=== PATIENT | female | born 1955 | race Caucasian/White ===

== ENCOUNTER 2016-10-17 09:12 | Emergency (ER) | payer BC ==
[2016-10-17] MEDS ORDERED: diphenhydrAMINE 50 MG/ML 1 ML VIAL IVP STA ×2 (09:52→10:35)
[2016-10-17] MEDS ORDERED: METOCLOPRAMIDE 5 MG/ML 2 ML VIAL IVP STA (09:53)
[2016-10-17] MEDS ORDERED: SODIUM CHLORIDE 0.9% 500 ML IV ONE (09:54)
[2016-10-17] MEDS ORDERED: KETOROLAC 30 MG/ML 1 ML VIAL IVP STA (09:54)
--- NOTE | 2016-10-17 09:59 | ED ---
Headache HPI - General Chief Complaint: Headache Stated Complaint: headache Time Seen by Provider: 10/17/16 09:34 Source: patient, RN notes reviewed Mode of arrival: ambulatory Limitations: no limitations - History of Present Illness Initial Comments: 60-year-old female presents emergency Department with chief complaint of headache. Patient states that headache since Thursday. Patient states she's been taken some Advil occasionally states that also but never resolves her headache. Patient states is a diffuse headache and seems to wax and wane and states that sometimes she feels that there is a band squeezing around her head. Patient denies any blurred vision, visual changes, focal weakness, vomiting but states she is nauseated. Patient denies any photophobia. Patient states she normally does not have any headaches. Patient denies any trauma. Patient denies fever, chills, Shortness of breath. Patient denies any other associated symptoms. - Related Data Home Medications Medication Instructions Recorded Confirmed Cholecalciferol [Vitamin D3] 1,000 unit PO DAILY 10/17/16 10/17/16 Gluc/Yobani-MSM#1/C/Ryan/Bebo/Bor 1 tab PO DAILY 10/17/16 10/17/16 [Glucosamine-Chondroitin Tablet] Multivit with Calcium,Iron,Min 1 tab PO DAILY 10/17/16 10/17/16 [Women's Multivitamin] Soy Isofla/Blk Cohosh/Mag Bark 155 mg PO DAILY 10/17/16 10/17/16 [Estroven 155 mg Capsule] Allergies Allergy/AdvReac Type Severity Reaction Status Date / Time No Known Allergies Allergy Verified 10/17/16 11:37 Review of Systems ROS Statement: Those systems with pertinent positive or pertinent negative responses have been documented in the HPI. ROS Other: All systems not noted in ROS Statement are negative. Past Medical History Past Medical History: Asthma, Hypertension History of Any Multi-Drug Resistant Organisms: None Reported Past Surgical History: No Surgical Hx Reported Past Psychological History: No Psychological Hx Reported Smoking Status: Never smoker Past Alcohol Use History: None Reported Past Drug Use History: None Reported General Exam General appearance: alert, in no apparent distress Head exam: Present: atraumatic, normocephalic, normal inspection Eye exam: Present: normal appearance, PERRL, EOMI. Absent: scleral icterus, conjunctival injection, periorbital swelling ENT exam: Present: normal exam, normal oropharynx, mucous membranes moist, TM's normal bilaterally, normal external ear exam Neck exam: Present: normal inspection, full ROM. Absent: tenderness, meningismus, lymphadenopathy Respiratory exam: Present: normal lung sounds bilaterally. Absent: respiratory distress, wheezes, rales, rhonchi, stridor Cardiovascular Exam: Present: regular rate, normal rhythm, normal heart sounds. Absent: systolic murmur, diastolic murmur, rubs, gallop, clicks Neurological exam: Present: alert, oriented X3, CN II-XII intact, reflexes normal. Absent: motor sensory deficit Skin exam: Present: warm, dry, intact, normal color. Absent: rash Course Vital Signs 10/17/16 10/17/16 09:21 11:56 Temperature 97.8 F Pulse Rate 76 76 Respiratory 18 18 Rate Blood Pressure 172/84 145/77 O2 Sat by Pulse 98 99 Oximetry Medical Decision Making - Medical Decision Making 52-year-old male presented for headache. Patient's headache is resolved this time. There is question aneurysm on CT MRI was performed correlate for hypertension, Lyme disease, demyelinating disease, migraine history. Patient be follow-up with neurologist. - Lab Data Result diagrams: 10/17/16 12:55 Lab Results 10/17/16 Range/Units 12:55 Sodium 145 (137-145) mmol/L Potassium 4.2 (3.5-5.1) mmol/L Chloride 112 H (98-107) mmol/L Carbon Dioxide 25 (22-30) mmol/L Anion Gap 8 mmol/L BUN 9 (7-17) mg/dL Creatinine 0.75 (0.52-1.04) mg/dL Est GFR (MDRD) Af Amer >60 (>60 ml/min/1.73 sqM) Est GFR (MDRD) Non-Af >60 (>60 ml/min/1.73 sqM) Glucose 90 (74-99) mg/dL Calcium 8.9 (8.4-10.2) mg/dL Disposition Clinical Impression: Headache Disposition: HOME SELF-CARE Condition: Stable Instructions: Acute Headache (ED) Additional Instructions: Please return to the Emergency Department if symptoms worsen or any other concerns. Referrals: Ronan Singleton MD [Primary Care Provider] - 1-2 days Claudia Webb MD [STAFF PHYSICIAN] - 1-2 days Time of Disposition: 15:37
--- NOTE | 2016-10-17 10:41 | CT ---
EXAMINATION TYPE: CT brain wo con DATE OF EXAM: 10/17/2016 10:08 AM COMPARISON: 10/01/2013 HISTORY: Headache CT DLP: 935.8 mGycm Automated exposure control for dose reduction was used. FINDINGS: There is no acute intracranial hemorrhage, mass effect, or midline shift identified. The ventricles and sulci are within normal limits in size. The globes are intact and the visualized sinuses are beata ar. There is mild prominence of the basilar tip. Stable from previous exam. Short-term follow-up MRA coul d be obtained. IMPRESSION: No acute intracranial hemorrhage, mass effect, or midline shift is seen. Mild prominence of the basilar tip could be correlated with MRA to exclude tiny aneurysm. Findings st able from previous exam of 2013.
[2016-10-17 13:14] LABS: Anion Gap 8 mmol/L; Blood Urea Nitrogen 9 mg/dL (7-17); Calcium 8.9 mg/dL (8.4-10.2); Carbon Dioxide 25 mmol/L (22-30); Chloride 112 mmol/L (98-107); Glucose 90 mg/dL (74-99); Non-African American GFR(MDRD) >60 (>60 ml/min/1.73 sqM); Potassium 4.2 mmol/L (3.5-5.1); Sodium 145 mmol/L (137-145)
--- NOTE | 2016-10-17 15:18 | MR ---
EXAMINATION TYPE: MR brain wo/w con DATE OF EXAM: 10/17/2016 2:51 PM COMPARISON: Previous CT scan of the brain dated 10/17/2016. HISTORY: Headaches, CT evidence of possible aneurysm TECHNIQUE: Multiplanar, multiecho imaging of the brain was obtained with and without intravenous adm inistration of 15 mL intravenous MultiHance. FINDINGS: Midline structures are unremarkable. There is a normal craniocervical junction. Echo planar diffusion imaging is normal. The orbits are normal. There is no evidence of a CP angle mass lesion. There are scattered high signal FLAIR lesions in the subcortical cox matter of both cerebral hemisph eres. Some of these are orthogonal to the ventricles. The largest on the right measures 6.2 mm. The l argest on the left measures 6.1 mm. There is no mass effect, midline shift or intracranial blood. Following intravenous administration of gadolinium, I do not see evidence of abnormal enhancement. IMPRESSION: 1. NO ACUTE INTRACRANIAL ABNORMALITY. 2. SCATTERED HIGH SIGNAL LESIONS THROUGHOUT THE WHITE MATTER TRACTS OF THE CEREBRAL HEMISPHERE, APPRO XIMATELY 5 IN NUMBER. DIFFERENTIAL DIAGNOSIS INCLUDES DEMYELINATION, HYPERTENSION, MIGRAINE HEADACHES , SMALL VESSEL DISEASE AND LYME'S DISEASE.
[2016-10-17 15:50] VITALS: BP 133/66; PULSE 73; RESP 16; TEMP 99
--- NOTE | 2016-10-17 17:10 | MR ---
EXAMINATION TYPE: MR angio head wo con DATE OF EXAM: 10/17/2016 3:11 PM COMPARISON: Previous CT scan of the brain dated 10/17/2016. HISTORY: Headaches, CT evidence of possible aneurysm TECHNIQUE: Time of flight images focusing on the [place] were performed without contrast. FINDINGS: The left vertebral artery is mildly dominant. The left posterior communicating artery is vi sualized. The right is not definitely visualized. Both ophthalmic arteries are visualized. There is n o sizable aneurysm. IMPRESSION: Normal MRA of the [place].
== END 2016-10-17 15:50 | disposition home or self-care (01) ==
LOC: EC 09:12
DX: R51 Headache (principal)
CPT/HCPCS: 99285; 96361 ×3; 96375 ×2; 96374; 36415; 80048; 70450; 70544; 70553; J1200; J2765; J1885; A9577

== ENCOUNTER → 2016-11-06 | Outpatient (CLI) | payer BC ==
--- NOTE | 2016-11-10 09:08 | MM ---
Reason for exam: screening (asymptomatic). Baseline mammogram. History: Patient is postmenopausal. Physical Findings: Nurse did not find any significant physical abnormalities on exam. MG Screening Mammo w CAD Bilateral CC and MLO view(s) were taken. There are scattered fibroglandular densities. Focal asymmetry in the left subareolar position. ASSESSMENT: Incomplete: need additional imaging evaluation, BI-RAD 0 RECOMMENDATION: Special view mammogram of the left breast. If lesion persists on supplemental views, image directed ultrasound is recommended. [facility] will attempt to contact patient to return for supplemental views and ultrasound if indicated.
== END | disposition home or self-care (01) ==
LOC: RADMAMWWP 13:27
PROVIDERS: ATTEND Family Medicine
DX: Z12.31 Encounter for screening mammogram for malignant neoplasm of breast (principal)

== ENCOUNTER → 2016-11-17 | Outpatient (CLI) | payer BC ==
--- NOTE | 2016-11-17 09:59 | MM ---
Reason for exam: additional evaluation requested from abnormal screening. Last mammogram was performed less than 1 month ago. History: Patient is postmenopausal. Physical Findings: Breast exam preformed at baseline screening. MG Work Up Mamm w CAD LT ML, spot compression MLO, and spot compression CC view(s) were taken of the left breast. Prior study comparison: November 06, 2016, bilateral MG screening mammo w CAD. There are scattered fibroglandular densities. Asymmetric breast tissue persists in the left breast at 6 o'clock. These results were verbally communicated with the patient and result sheet given to the patient on 11/17/16. ASSESSMENT: Incomplete: need additional imaging evaluation, BI-RAD 0 RECOMMENDATION: Ultrasound of the left breast.
--- NOTE | 2016-11-17 10:00 | USB ---
Reason for exam: additional evaluation requested from abnormal screening. History: Patient is postmenopausal. US Breast Workup LT Left breast ultrasound including all four quadrants, the retroareolar region and axilla demonstrates a 0.41 x 0.19 x 0.42cm mixed lesion at 12 o'clock and a 0.97 x 0.55 x 0.10cm cystic lesion at 7 o'clock. These results were verbally communicated with the patient and result sheet given to the patient on 11/17/16. ASSESSMENT: Probably benign, BI-RAD 3 RECOMMENDATION: Follow-up diagnostic mammogram and ultrasound of the left breast in 6 months.
== END | disposition home or self-care (01) ==
LOC: RADMAMWWP 08:49
PROVIDERS: ATTEND Family Medicine
DX: R92.8 Other abnormal and inconclusive findings on diagnostic imaging of breast (principal)
CPT/HCPCS: 76641; G0206

== ENCOUNTER → 2020-10-22 | Outpatient (CLI) | payer BC ==
--- NOTE | 2020-10-24 08:40 | ECHOS ---
STRESS ECHOCARDIOGRAM LUMASON: N/A Vial INDICATIONS: tachycardia MEDICATIONS: BASELINE HEART RATE: 75 BASELINE BLOOD PRESSURE: 148/87 MAXIMUM HEART RATE: 156 MAXIMUM BLOOD PRESSURE: 199/96 85% MPHR: 134 100% MPHR: 158 METS: 7.3 MAXIMUM STAGE REACHED: III TOTAL EXERCISE TIME: 6:23 CLINICAL INFORMATION: Selene Tamayo is a 64-year-old female who underwent an exercise stress echo. Baseline heart rate 75 beats per minute. Baseline blood pressure 148/87 mmHg. Baseline 12-lead ECG showed normal sinus rhythm with normal ST segments. Patient exercised on a Rashid protocol for 6-1/2 minutes, achieving a peak heart rate of 156 beats per minute. Normal blood pressure response to exercise. There was no ECG evidence for ischemia. No arrhythmias were noted. Baseline 2D echo images showed normal LV size and systolic function without segmental wall motion abnormalities. At peak exercise, there was excellent augmentation of overall LV contractility without development of any wall motion abnormalities. At recovery, regional global LV systolic function remained normal. IMPRESSION: No ECG or echocardiographic evidence for ischemia. Average exercise capacity. Please note: Patient has a history of asthma. MMODL / IJN: [id number] /
== END | disposition home or self-care (01) ==
LOC: RADNMMAIN 09:01
PROVIDERS: ATTEND Family Medicine
DX: R00.0 Tachycardia, unspecified (principal); Z87.09 Personal history of other diseases of the respiratory system
CPT/HCPCS: 93351

== ENCOUNTER 2021-02-10 17:30 | Emergency (ER) | payer BC ==
[2021-02-10 17:35] VITALS: BP 146/85; PULSE 91; RESP 20; TEMP 97.9
[2021-02-10] MEDS ORDERED: LIDOCAINE 1% INJ 10MG/ML (20 ML MDV) SQ ONE (18:27)
[2021-02-10] MEDS ORDERED: BACITRACIN OINT 1 EACH PACKET TOPICAL ONE (18:27)
[2021-02-10] MEDS ORDERED: DIPH,PERTUS(ACELL)TETVAC-LF 0.5 ML VIAL IM ONE (18:28)
--- NOTE | 2021-02-10 18:29 | ED ---
Wound/Laceration HPI - General Chief Complaint: Wound/Laceration Stated Complaint: toe injury/lac Time Seen by Provider: 02/10/21 17:59 Source: patient, RN notes reviewed, old records reviewed Mode of arrival: ambulatory Limitations: no limitations - History of Present Illness Initial Comments: This patient's a 65-year-old female who presents with a laceration over the right second distal toe after dropping a metal table on it. Patient reports that she requires update TDAP. Patient has no other injury. Patient report difficult with bending the tip of the toe. - Related Data Home Medications Medication Instructions Recorded Confirmed Cholecalciferol [Vitamin D3] 1,000 unit PO DAILY 10/17/16 10/17/16 Glucosam/Yobani-Msm1/C/Ryan/Bosw 1 tab PO DAILY 10/17/16 10/17/16 [Glucosamine-Chondroitin Tablet] Multivit with Calcium,Iron,Min 1 tab PO DAILY 10/17/16 10/17/16 [Women's Multivitamin] Soy Isofla/Blk Cohosh/Mag Bark 155 mg PO DAILY 10/17/16 10/17/16 [Estroven 155 mg Capsule] Previous Rx's Medication Instructions Recorded Cephalexin [Keflex] 500 mg PO Q8HR #21 cap 02/10/21 Allergies Allergy/AdvReac Type Severity Reaction Status Date / Time No Known Allergies Allergy Verified 10/17/16 11:37 Review of Systems ROS Statement: Those systems with pertinent positive or pertinent negative responses have been documented in the HPI. ROS Other: All systems not noted in ROS Statement are negative. Past Medical History Past Medical History: Asthma, Hypertension History of Any Multi-Drug Resistant Organisms: None Reported Past Surgical History: No Surgical Hx Reported Past Psychological History: No Psychological Hx Reported Smoking Status: Never smoker Past Alcohol Use History: None Reported Past Drug Use History: None Reported General Exam - General Exam Comments Initial Comments: 65 year old female. Limitations: no limitations General appearance: alert, in no apparent distress Head exam: Present: atraumatic, normocephalic, normal inspection Eye exam: Present: normal appearance, PERRL, EOMI. Absent: scleral icterus, conjunctival injection, periorbital swelling ENT exam: Present: normal exam, mucous membranes moist Neck exam: Present: normal inspection. Absent: tenderness, meningismus, lymphadenopathy Respiratory exam: Present: normal lung sounds bilaterally. Absent: respiratory distress, wheezes, rales, rhonchi, stridor Cardiovascular Exam: Present: regular rate, normal rhythm, normal heart sounds. Absent: systolic murmur, diastolic murmur, rubs, gallop, clicks GI/Abdominal exam: Present: normal bowel sounds. Absent: distended, tenderness, guarding, rebound, rigid Extremities exam: Present: normal inspection, full ROM, normal capillary refill. Absent: tenderness, pedal edema, joint swelling, calf tenderness Right Knee exam: Present: normal inspection, full ROM Lower Leg exam: Present: normal inspection, full ROM Ankle exam: Present: normal inspection, full ROM Foot/Toe exam: Present: full ROM, swelling, laceration (Patient has swelling and a 1.5 cm flap laceration over the right second digit at the tip of the toe. ). Absent: normal inspection Back exam: Present: normal inspection Neurological exam: Present: alert, oriented X3, CN II-XII intact Psychiatric exam: Present: normal affect, normal mood Course Vital Signs 02/10/21 17:32 Temperature 97.9 F Pulse Rate 91 Respiratory 20 Rate Blood Pressure 146/85 O2 Sat by Pulse 100 Oximetry Procedures - Laceration Laceration #1 Size (cm): 2 Description: flap Depth: simple, single layer Anesthetic Used: lidocaine 1% Anesthesia Technique: local infiltration Amount (mls): 2 Pre-repair: wound explored, irrigated extensively Type of Sutures: nylon Size of Sutures: 5-0 Number of Sutures: 6 Technique: simple, interrupted Patient Tolerated Procedure: well, no complications Medical Decision Making - Medical Decision Making 65 year old female presents with toe laceration after dropping a metal table on the tip of the toe. Patient had a flap laceration that was cleaned and closed with 6 sutures. Patient xray shows no fracture. Patient was placed on keflex. Patient has been advised on wound care. Patient advised that this can be concern for poor healing at the distal toe. - Radiology Data Radiology results: report reviewed No fracture seen. Soft tissue deformity noted. Disposition Clinical Impression: Toe laceration, Crush injury, toe Disposition: HOME SELF-CARE Condition: Good Instructions (If sedation given, give patient instructions): Laceration (ED) Additional Instructions: Please return to the emergency room in 8-10 days to have sutures removed. Please leave wound covered for the first 24-48 hours and then leave open to air periodically. Keep covered if wearing shoes and socks. Please use clean soap and water to clean the suture area to prevent scabbing over the top of your sutures. Please watch for any signs of infection which may include but not limited to increased pain, swelling, redness, fever or chills. Please return to the emergency room if any signs of infection do occur. Please return to the emergency room for any other concerns or complications. Prescriptions: Cephalexin [Keflex] 500 mg PO Q8HR #21 cap Is patient prescribed a controlled substance at d/c from ED?: No Referrals: Ronan Singleton MD [Primary Care Provider] - 1-2 days Time of Disposition: 19:17
[2021-02-10] MEDS ORDERED: CEPHALEXIN 500MG STARTER PACK 4 CAP BTL PO STA (18:36)
--- NOTE | 2021-02-10 18:37 | XR ---
EXAMINATION TYPE: XR foot complete RT DATE OF EXAM: 02/10/2021 COMPARISON: NONE HISTORY: Second digit laceration TECHNIQUE: 3 views FINDINGS: Metatarsals are intact. There is plantar and Achilles calcaneal spurring. I see no fracture nor dislocation. There is some deformity at the tip of the second toe consistent with laceration. IMPRESSION: No fracture seen. Soft tissue deformity.
[2021-02-10] MEDS ORDERED: ACET/COD 300 MG/30 MG STARTER PACK 6 TAB BTL PO STA (19:22)
== END 2021-02-10 19:49 | disposition home or self-care (01) ==
LOC: EC 17:30
DX: S97.121A Crushing injury of right lesser toe(s), initial encounter (principal); I10 Essential (primary) hypertension; J45.909 Unspecified asthma, uncomplicated; W23.0XXA Caught, crushed, jammed, or pinched between moving objects, initial encounter; Z23 Encounter for immunization
CPT/HCPCS: 73630; 90715; 12001; 99283; 90471; 96372; J2001

== ENCOUNTER 2021-05-26 02:41 | Emergency (ER) | payer BC ==
[2021-05-26 02:49] VITALS: TEMP 97.8
[2021-05-26] MEDS ORDERED: Acetaminophen-Codeine 300-30mg TAB PO STA (03:13)
[2021-05-26 03:46] LABS: ALT 18 U/L (4-34); AST 27 U/L (14-36); African American GFR (CKD) >90 (>60 ml/min/1.73 sqM); Albumin 4.1 g/dL (3.5-5.0); Alkaline Phosphatase 83 U/L (38-126); Anion Gap 8 mmol/L; Blood Urea Nitrogen 18 mg/dL (7-17); Calcium 9.3 mg/dL (8.4-10.2); Carbon Dioxide 26 mmol/L (22-30); Chloride 102 mmol/L (98-107); Glucose 143 mg/dL (74-99); Non-African American GFR(CKD) 85 (>60 ml/min/1.73 sqM); Potassium 3.6 mmol/L (3.5-5.1); Sodium 136 mmol/L (137-145); Total Bilirubin 0.4 mg/dL (0.2-1.3); Total Protein 6.9 g/dL (6.3-8.2)
--- NOTE | 2021-05-26 03:48 | ED ---
Syncope HPI - General Chief Complaint: Syncope Stated Complaint: Fall Time Seen by Provider: 05/26/21 02:59 Source: patient Mode of arrival: ambulatory - Related Data Home Medications Medication Instructions Recorded Confirmed Cholecalciferol [Vitamin D3] 1,000 unit PO DAILY 10/17/16 10/17/16 Glucosam/Yobani-Msm1/C/Ryan/Bosw 1 tab PO DAILY 10/17/16 10/17/16 [Glucosamine-Chondroitin Tablet] Multivit with Calcium,Iron,Min 1 tab PO DAILY 10/17/16 10/17/16 [Women's Multivitamin] Soy Isofla/Blk Cohosh/Mag Bark 155 mg PO DAILY 10/17/16 10/17/16 [Estroven 155 mg Capsule] Previous Rx's Medication Instructions Recorded Cephalexin [Keflex] 500 mg PO Q8HR #21 cap 02/10/21 Allergies Allergy/AdvReac Type Severity Reaction Status Date / Time metoclopramide [From Reglan] AdvReac Unknown Verified 05/26/21 02:48 Review of Systems ROS Statement: Those systems with pertinent positive or pertinent negative responses have been documented in the HPI. ROS Other: All systems not noted in ROS Statement are negative. Past Medical History Past Medical History: Asthma, Hypertension History of Any Multi-Drug Resistant Organisms: None Reported Past Surgical History: No Surgical Hx Reported Past Psychological History: No Psychological Hx Reported Smoking Status: Never smoker Past Alcohol Use History: None Reported Past Drug Use History: None Reported Course Vital Signs 05/26/21 05/26/21 02:43 04:05 Temperature 97.8 F Pulse Rate 86 82 Respiratory 18 20 Rate Blood Pressure 153/87 135/78 O2 Sat by Pulse 99 99 Oximetry EKG Findings - EKG Results: EKG: interpreted by LIANET CHILDS, sinus rhythm (Rate 83 bpm), normal axis, normal QRS, normal ST/T, no acute changes Medical Decision Making - Lab Data Result diagrams: 05/26/21 03:25 05/26/21 03:25 Lab Results 05/26/21 05/26/21 05/26/21 Range/Units 03:25 03:25 03:25 WBC 4.9 (3.8-10.6) k/uL RBC 4.39 (3.80-5.40) m/uL Hgb 13.4 (11.4-16.0) gm/dL Hct 41.3 (34.0-46.0) % MCV 94.0 (80.0-100.0) fL MCH 30.6 (25.0-35.0) pg MCHC 32.6 (31.0-37.0) g/dL RDW 12.5 (11.5-15.5) % Plt Count 118 L (150-450) k/uL MPV 11.2 Neutrophils % 72 % Lymphocytes % 14 % Monocytes % 11 % Eosinophils % 1 % Basophils % 1 % Neutrophils # 3.5 (1.3-7.7) k/uL Lymphocytes # 0.7 L (1.0-4.8) k/uL Monocytes # 0.5 (0-1.0) k/uL Eosinophils # 0.0 (0-0.7) k/uL Basophils # 0.0 (0-0.2) k/uL PT 10.4 (9.0-12.0) sec INR 1.0 (<1.2) APTT 20.6 L (22.0-30.0) sec Sodium 136 L (137-145) mmol/L Potassium 3.6 (3.5-5.1) mmol/L Chloride 102 (98-107) mmol/L Carbon Dioxide 26 (22-30) mmol/L Anion Gap 8 mmol/L BUN 18 H (7-17) mg/dL Creatinine 0.75 (0.52-1.04) mg/dL Est GFR (CKD-EPI)AfAm >90 (>60 ml/min/1.73 sqM) Est GFR (CKD-EPI)NonAf 85 (>60 ml/min/1.73 sqM) Glucose 143 H (74-99) mg/dL Calcium 9.3 (8.4-10.2) mg/dL Total Bilirubin 0.4 (0.2-1.3) mg/dL AST 27 (14-36) U/L ALT 18 (4-34) U/L Alkaline Phosphatase 83 (38-126) U/L Troponin I (0.000-0.034) ng/mL Total Protein 6.9 (6.3-8.2) g/dL Albumin 4.1 (3.5-5.0) g/dL 05/26/21 Range/Units 03:25 WBC (3.8-10.6) k/uL RBC (3.80-5.40) m/uL Hgb (11.4-16.0) gm/dL Hct (34.0-46.0) % MCV (80.0-100.0) fL MCH (25.0-35.0) pg MCHC (31.0-37.0) g/dL RDW (11.5-15.5) % Plt Count (150-450) k/uL MPV Neutrophils % % Lymphocytes % % Monocytes % % Eosinophils % % Basophils % % Neutrophils # (1.3-7.7) k/uL Lymphocytes # (1.0-4.8) k/uL Monocytes # (0-1.0) k/uL Eosinophils # (0-0.7) k/uL Basophils # (0-0.2) k/uL PT (9.0-12.0) sec INR (<1.2) APTT (22.0-30.0) sec Sodium (137-145) mmol/L Potassium (3.5-5.1) mmol/L Chloride (98-107) mmol/L Carbon Dioxide (22-30) mmol/L Anion Gap mmol/L BUN (7-17) mg/dL Creatinine (0.52-1.04) mg/dL Est GFR (CKD-EPI)AfAm (>60 ml/min/1.73 sqM) Est GFR (CKD-EPI)NonAf (>60 ml/min/1.73 sqM) Glucose (74-99) mg/dL Calcium (8.4-10.2) mg/dL Total Bilirubin (0.2-1.3) mg/dL AST (14-36) U/L ALT (4-34) U/L Alkaline Phosphatase (38-126) U/L Troponin I <0.012 (0.000-0.034) ng/mL Total Protein (6.3-8.2) g/dL Albumin (3.5-5.0) g/dL Disposition Clinical Impression: Syncope due to orthostatic hypotension Disposition: HOME SELF-CARE Condition: Good Instructions (If sedation given, give patient instructions): Syncope (ED) Is patient prescribed a controlled substance at d/c from ED?: No Referrals: Ronan Singleton MD [Primary Care Provider] - 1-2 days
[2021-05-26 03:52] LABS: Basophils % (A) 1 %; Eosinophils % (A) 1 %; HCT 41.3 % (34.0-46.0); HGB 13.4 gm/dL (11.4-16.0); Lymphocytes # (A) 0.7 k/uL (1.0-4.8); Lymphocytes % (A) 14 %; MCH 30.6 pg (25.0-35.0); MCHC 32.6 g/dL (31.0-37.0); Mean Platelet Volume 11.2; Monocytes # (A) 0.5 k/uL (0-1.0); Monocytes % (A) 11 %; Neutrophils # (A) 3.5 k/uL (1.3-7.7); Neutrophils % (A) 72 %; Platelet Count 118 k/uL (150-450); RBC 4.39 m/uL (3.80-5.40); RDW 12.5 % (11.5-15.5); WBC 4.9 k/uL (3.8-10.6)
[2021-05-26 04:02] LABS: Prothrombin Time 10.4 sec (9.0-12.0)
[2021-05-26 04:05] VITALS: RESP 20
--- NOTE | 2021-05-26 04:11 | XR ---
EXAMINATION TYPE: XR chest 2V DATE OF EXAM: 05/26/2021 COMPARISON: NONE HISTORY: Syncope. Fall TECHNIQUE: FINDINGS: Heart and mediastinum are normal. Lungs are clear. Diaphragm is normal. Bony thorax is inta ct. Pulmonary vascularity is normal. IMPRESSION: Normal chest.
--- NOTE | 2021-05-26 04:15 | CT ---
EXAMINATION TYPE: CT brain cspine wo con DATE OF EXAM: 05/26/2021 COMPARISON: CT brain 10/17/2016 HISTORY: fall. +LOC CT DLP: 1302.6 mGycm Automated exposure control for dose reduction was used. Ventricles have normal size. There is no mass effect nor midline shift. There is no sign of intracran ial hemorrhage. Calvarium is intact. There is some straightening of the cervical spine. There is mild disc space narrowing at C5-6 and C6-7 with spurring. Posterior elements are intact. Facet joints are intact. IMPRESSION: Negative CT scan of the brain. No change. Mild spondylotic changes in the lower cervical spine. No fracture.
[2021-05-26 04:22] LABS: Partial Thromboplastin Time 20.6 sec (22.0-30.0)
[2021-05-26 05:44] VITALS: BP 140/84; PULSE 88
== END 2021-05-26 05:44 | disposition home or self-care (01) ==
LOC: EC 02:41
DX: I95.1 Orthostatic hypotension (principal); J45.909 Unspecified asthma, uncomplicated; I10 Essential (primary) hypertension
CPT/HCPCS: 36415; 70450; 71046; 72125; 80053; 84484; 85025; 85610; 85730; 93005; 99284

== ENCOUNTER → 2021-09-19 | Outpatient (CLI) | payer BC ==
--- NOTE | 2021-09-23 11:32 | MM ---
Reason for exam: screening (asymptomatic). Last mammogram was performed 4 years and 10 months ago. History: Patient is postmenopausal. Physical Findings: A clinical breast exam by your physician is recommended on an annual basis and results should be correlated with mammographic findings. MG Screening Mammo w CAD Bilateral CC and MLO view(s) were taken. Prior study comparison: November 17, 2016, left breast MG work up mamm w CAD LT. November 06, 2016, bilateral MG screening mammo w CAD. The breast tissue is heterogeneously dense. This may lower the sensitivity of mammography. There is chronic nodularity in the left breast. No significant changes when compared with prior studies. ASSESSMENT: Benign, BI-RAD 2 RECOMMENDATION: Routine screening mammogram of both breasts in 1 year. Patient should continue monthly self breast exams. A negative report should not preclude additional follow up of suspicious palpable abnormalities.
== END | disposition home or self-care (01) ==
LOC: RADMAMWWP 07:13
PROVIDERS: ATTEND Family Medicine
DX: Z12.31 Encounter for screening mammogram for malignant neoplasm of breast (principal); Z78.0 Asymptomatic menopausal state
CPT/HCPCS: 77067

== ENCOUNTER → 2024-11-21 | Outpatient (CLI) | payer MEDICARE ==
--- NOTE | 2024-11-21 07:31 | MM ---
Reason for Exam: Screening (asymptomatic). Last mammogram was performed 3 year(s) and 2 month(s) ago. Patient History: Menarche at age 15. First Full-Term at age 19. Postmenopausal. Risk Values: Sybil 5 year model risk: 1.2%. NCI Lifetime model risk: 4.2%. Prior Study Comparison: 11/06/2016 Bilateral Screening Mammogram, [facility]. 11/17/2016 Left Diagnostic Mammogram, [facility]. 09/19/2021 Bilateral Screening Mammogram, [facility]. Tissue Density: There are scattered areas of fibroglandular density. Findings: Analyzed By CAD. There is a stable 10 mm lobulated mass anteriorly in the left breast There is no suspicious group of microcalcifications or new or enlarging suspicious mass in either breast. Overall Assessment: Benign, BI-RAD 2 Management: Screening Mammogram of both breasts in 1 year. . Patient should continue monthly self-breast exams. A clinical breast exam by your physician is recommended on an annual basis. This exam should not preclude additional follow-up of suspicious palpable abnormalities. Note on Sybil scores and lifetime risk: 1. A Sybil score greater than 3% is considered moderate risk. If this is the case, consider specialist referral to assess eligibility for a risk reducing agent. 2. If overall lifetime risk for the development of breast cancer is 20% or higher, the patient may qualify for future screening with alternating mammogram and breast MRI. [facility], , 11/21/2024 7:29 AM. Electronically signed and approved by: Lauro Machado M.D.
== END | disposition home or self-care (01) ==
LOC: RADMAMWWP 07:04
PROVIDERS: ATTEND Family Medicine
DX: Z12.31 Encounter for screening mammogram for malignant neoplasm of breast (principal); R92.323 Mammographic fibroglandular density, bilateral breasts; Z78.0 Asymptomatic menopausal state
CPT/HCPCS: 77067